=== PATIENT | female | born 1950 | race Hispanic/Latino ===

== ENCOUNTER 2018-10-06 23:56 | Emergency (ER) | payer BC, MEDICARE ==
[2018-10-07 01:22] LABS: APPEARANCE,URINE Clear (CLEAR); BILIRUBIN,URINE Negative (NEGATIVE); COLOR,URINE Yellow (YELLOW); GLUCOSE, URINE (UA) Negative (NEGATIVE); KETONES,URINE Negative (NEGATIVE); LEUKOCYTE ESTERASE ,URINE Moderate (NEGATIVE); NITRATE,URINE Positive (NEGATIVE); OCCULT BLOOD,URINE Negative (NEGATIVE); PH,URINE 6.5 (5.0-8.0); PROTEIN,URINE Negative (NEGATIVE); UROBILINOGEN,URINE 0.2 mg/dL (0.2-1.0)
[2018-10-07 01:34] LABS: BACTERIA,URINE Many /HPF (None Seen); RBC,URINE None Seen /HPF (0-1)
[2018-10-07 01:35] LABS: MUCUS,URINE None Seen LPF (None Seen); SQUAMOUS EPITHELIAL CELL,UR None Seen /HPF (0-2)
[2018-10-07 01:40] LABS: BASOPHILS % (AUTO) 0.4 % (0.0-5.0); EOSINOPHILS % (AUTO) 0.6 % (0.0-8.0); HEMATOCRIT 44.7 % (36-48); LYMPHOCYTES % (AUTO) 25.4 % (21.0-51.0); MEAN CORPUSCULAR HEMOGLOBIN 27.5 pg (27.0-33.0); MEAN CORPUSCULAR HGB CONC 34.2 g/dL (32.0-36.0); MEAN CORPUSCULAR VOLUME 80.4 fL (79-99); MONOCYTES % (AUTO) 10.1 % (3.0-13.0); NEUTROPHILS % (AUTO) 63.5 % (40.0-77.0); NUCLEATED RED BLOOD CELLS 0.1 % (0.0-0.19); PLATELET COUNT (AUTO) 201 K/uL (130-400); RED BLOOD CELL COUNT(AUTO) 5.57 MIL/uL (4.00-5.50); RED CELL DISTRIBUTION WIDTH 14.6 % (11.0-15.5); WHITE BLOOD COUNT (AUTO) 6.1 K/uL (4.8-10.8)
[2018-10-07 01:49] LABS: CREATININE 1.1 mg/dL (0.5-1.5); POTASSIUM 3.7 mmol/L (3.5-5.1)
[2018-10-07 01:53] LABS: ALBUMIN 3.7 g/dL (3.5-5.0); BILIRUBIN,TOTAL 1.5 mg/dL (0.2-1.0); TOTAL PROTEIN, SERUM 7.5 g/dL (6.0-8.3)
[2018-10-07] MEDS ORDERED: LEVOFLOXACIN 500 MG TABLET ONE (02:23)
== END 2018-10-07 02:37 | disposition home or self-care (01) ==
LOC: EDH 23:56
DX: R03.0 Elevated blood-pressure reading, without diagnosis of hypertension (principal); R82.71 Bacteriuria
CPT/HCPCS: 36415; 80053; 81001; 84484; 85025; 93005

== ENCOUNTER 2022-11-09 00:06 | Emergency (ER) | payer BC, MEDICARE ==
[~2022-11-09] VITALS: Ht 175.3 cm; Wt 85.3 kg
[2022-11-09 01:16] LABS: APPEARANCE,URINE CLEAR (CLEAR); BILIRUBIN,URINE NEGATIVE (NEGATIVE); COLOR,URINE LIGHT-YELLOW (YELLOW); GLUCOSE, URINE (UA) NEGATIVE (NEGATIVE); KETONES,URINE NEGATIVE (NEGATIVE); LEUKOCYTE ESTERASE ,URINE NEGATIVE Leu/uL (NEGATIVE); NITRATE,URINE NEGATIVE (NEGATIVE); OCCULT BLOOD,URINE LARGE (NEGATIVE); PROTEIN,URINE NEGATIVE (NEGATIVE); UROBILINOGEN,URINE 0.2 mg/dL (0.2-1.0)
[2022-11-09 01:33] LABS: MUCUS,URINE RARE LPF (None Seen); RBC,URINE TNTC /HPF (0-1); WBC,URINE 0-1 /HPF (0-1)
[2022-11-09] MEDS ORDERED: POTASSIUM BICARB/CIT AC 25 MEQ TABLET.EFF PO ONE (03:00)
[2022-11-09 03:16] VITALS: BP 138/70
== END 2022-11-09 03:20 | disposition home or self-care (01) ==
LOC: EDH 00:06
DX: N32.0 Bladder-neck obstruction (principal); R33.8 Other retention of urine; I10 Essential (primary) hypertension; Z90.49 Acquired absence of other specified parts of digestive tract
CPT/HCPCS: 51702; 81001

== ENCOUNTER 2024-08-25 14:42 | Emergency (ER) | payer MEDICARE, OTHER ==
[~2024-08-25] VITALS: Ht 175.3 cm; Wt 84.4 kg
--- NOTE | 2024-08-25 15:27 | EKG ---
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
[2024-08-25] MEDS: 0.9%NACL 1000ML 1,000 ML IV ONE (15:30)
--- NOTE | 2024-08-25 15:35 | ERN ---
General Chief Complaint: Nausea,Vomiting,Diarrhea Stated Complaint: DIZZY, VOMITING Time Seen by MD: 14:42 Source: patient, family History of Present Illness Initial Comments Patient is a 73-year-old male coming in to be evaluated for nauseousness vomi ting and dizziness. Per patient this began earlier in the morning the coming 7:00 a.m. he woke up Tuesday digits bed and felt nauseous and felt that is pending. He states he ate some soup last night lose it might be associated with the confirms it. Along with the nauseousness and dizziness he had couple of emesis. Allergies: Coded Allergies: No Known Drug Allergies (Unverified Allergy, Unknown, 02/25/19) Past Medical History Past Medical History: Hypertension, Prostatitis Past Surgical History: Cholecystectomy Social History Social History: Negative, Lives with family ROS Dictation CONSTITUTIONAL: No chills, no fever, no weakness, no diaphoresis, no malaise. HEAD/FACE: No signs of trauma. EENT: No eye pain, no blurred vision, no tearing, no double vision, no ear pain, no ear discharge, no nose pain, no nasal congestion, no throat pain, no throat swelling, no mouth pain. RESPIRATORY: No cough, no orthopnea, no SOB, no stridor, no wheezing. CARDIOVASCULAR: No chest pain, no edema, no palpitations, no syncope. GASTROINTESTINAL/ABDOMINAL: No abdominal pain, no constipation, no diarrhea, no nausea, no vomiting. GENITOURINARY: No abnormal discharge, no dysuria, no frequent urination, no hematuria. No complaints of pain in the genitals. MUSCULOSKELETAL: No back pain, no gout, no joint pain, no joint swelling, no muscle pain, no muscle stiffness, no neck pain. INTEGUMENTARY: No change in color, no change in hair/nails, no dryness, no lesion, no lumps, no rash. NEUROLOGICAL/PSYCH: No anxiety, not depressed, no emotional problem, no headache, no numbness, no pre-existing deficit, no history of seizures, no tr emors, no weakness. HEMATOLOGIC/LYMPHATIC: Not anemic, no history of blood clots, no apparent bleeding, no bruising, glands not swollen. All Systems Negative, Except as Noted. Physical Exam Physical Exam Dictation VITAL SIGNS: Reviewed. GENERAL APPEARANCE: Alert, oriented x3, no acute distress, obese. HEAD AND FACE: Non-traumatic. EYES: PERRL, pink conjunctivas, eyelid no trauma, anterior chamber clear. EARS: Pinnas intact and no signs of trauma or erythema. Ear canals clear and no discharge. TMs no erythema. NOSE: No discharge, no bleeding. OROPHARYNX: Mouth normal, teeth no caries, tongue pink. Pharynx clear, no erythema. Tonsils no exudates, no abscesses noted. Mucous membrane moist. NECK: Supple, non-tender, no thyromegaly, no masses, no JVD, no bruits. BREAST: Deferred. CHEST: No tenderness, no crepitus, no paradoxical movement, no retractions. LUNGS: Clear, well-ventilated, symmetric, no rales, no wheezing, no rhonchi, no stridor, good breath sounds bilaterally. HEART: Regular rate, regular rhythm, no murmur, no gallops. VASCULAR: No peripheral edema. ABDOMEN: Soft, positive bowel sounds, nondistended, no guarding, nontender, no rebound, no masses no hepatomegaly, no splenomegaly, no Gifford's sign, no hernias. RECTAL: Deferred. GENITAL: Deferred. NEUROLOGICAL: Normal speech, gross motor function intact, gross sensory function intact. MUSCULOSKELETAL: Neck nontender, full range of motion, back nontender, full range of motion. EXTREMITIES: Nontender, full range of motion. SKIN: Color pink, dry, no turgor, no rash, no lacerations, no abrasions, no contusions. LYMPHATICS: Deferred. Results Laboratory and Microbiology Lab and Micro Result Laboratory Tests Test 08/25/24 15:39 White Blood Count 8.4 K/uL (4.8-10.8) Red Blood Count 5.72 MIL/uL (4.50-6.20) Hemoglobin 15.4 g/dL (14.0-18.0) Hematocrit 45.9 % (42-54) Mean Corpuscular Volume 80.2 fL (79-99) Mean Corpuscular Hemoglobin 26.9 pg (27.0-33.0) L Mean Corpuscular Hemoglobin Concent 33.6 g/dL (32.0-36.0) Red Cell Distribution Width 12.7 % (11.0-15.5) Platelet Count 213 K/uL (130-400) Mean Platelet Volume 9.8 fL (7.5-10.5) Immature Granulocyte % (Auto) 0.4 % (0-1) Neutrophils (%) (Auto) 82.3 % (40.0-77.0) H Lymphocytes (%) (Auto) 13.6 % (21.0-51.0) L Monocytes (%) (Auto) 3.6 % (3.0-13.0) Eosinophils (%) (Auto) 0.0 % (0.0-8.0) Basophils (%) (Auto) 0.1 % (0.0-5.0) Neutrophils # (Auto) 7.0 K/uL (1.8-7.7) Lymphocytes # (Auto) 1.2 K/uL (1.0-4.8) Monocytes # (Auto) 0.3 K/uL (0.1-1.0) Eosinophils # (Auto) 0.00 K/uL (0.00-0.70) Basophils # (Auto) 0.01 K/uL (0.00-0.20) Absolute Immature Granulocyte (auto 0.03 K/uL (0-1) Nucleated Red Blood Cells 0.0 % (0.0-0.19) Prothrombin Time 10.9 SEC (9.6-11.6) Prothromb Time International Ratio 1.03 (0.85-1.15) Activated Partial Thromboplast Time 26.9 SEC (26.3-35.5) Sodium Level 138 mmol/L (136-145) Potassium Level 4.1 mmol/L (3.5-5.1) Chloride Level 104 mmol/L (101-111) Carbon Dioxide Level 27 mmol/L (21-32) Blood Urea Nitrogen 18 mg/dL (7-18) Creatinine 1.2 mg/dL (0.5-1.3) Glomerular Filtration Rate Calc 64 mL/min (>90) Random Glucose 142 mg/dL (70-105) H Total Calcium 9.3 mg/dL (8.5-10.1) Magnesium Level 2.00 mg/dL (1.80-2.40) Total Creatine Kinase 65 U/L (21-232) # Troponin I High Sensitivity 6 ng/L (4-75) B-Type Natriuretic Peptide 35 pg/mL (0-100) Labs Reviewed?: Yes EKG/XRAY/US/CT/MRI EKG Comment 08/25/2024 time 3:22 p.m. Ventricular rate 78 Sinus rhythm [place] [address] wave elevation or depression X-RAY Comment [address] [address] IMAGING REPORT Signed PATIENT: MAILE OREILLY MR#: [id number] : 1950 SEX: M AGE: 73 LOCATION: ED ORDER [id number] STATUS: REG ER REPORT#: [id number] SERVICE 151 REASON: vertigo ORDERING PHYSICIAN: TRACEY CANALES MD PROCEDURE: CXR1VW - CHEST 1VW CHEST 1VW CLINICAL HISTORY: vertigo COMPARISON: 02/24/2019 TECHNIQUE: Single view of the chest was obtained. FINDINGS: Lungs are clear. The cardiac size and mediastinum are unremarkable. The bony structures are within normal limits. IMPRESSION: No acute cardiopulmonary process identified. DICTATED BY: KIRSTIE ANTUNEZ DO DATE: 08/25/24 1545 ELECTRONICALLY SIGNED BY: KIRSTIE ANTUNEZ DO DATE: 08/25/[address] Scan Comment [address] [address] IMAGING REPORT Signed PATIENT: MAILE OREILLY MR#: [id number] : 1950 SEX: M AGE: 73 LOCATION: ED ORDER [id number] STATUS: REG ER REPORT#: [id number] SERVICE 1535 REASON: headache ORDERING PHYSICIAN: TRACEY CANALES MD PROCEDURE: HEAD WO - CT HEAD/BRAIN W/O CONTRAST CT HEAD/BRAIN W/O CONTRAST CLINICAL HISTORY: headache COMPARISON: None TECHNIQUE: Multiple sequential axial images of the head were obtained from the base of the skull through vertex. CT was performed with one or more of the following dose reduction techniques: automated exposure control, adjustment of the mA and/or kV according to patient size, or use of iterative reconstruction technique FINDINGS: There is mild atrophy and small vessel disease. The orbital contents, paranasal sinuses and mastoid air cells are within normal limits. The calvarium is intact. IMPRESSION: There are no acute findings DICTATED BY: KIRSTIE ANTUNEZ DO DATE: 08/25/241614 ELECTRONICALLY SIGNED BY: KIRSTIE ANTUNEZ DO DATE: 08/25/241617 [facility] MDM: Differential diagnosis: VERTIGO , SINUSITIS, DEHYDRATION, STROKE, PATIENT IS A 73-YEAR-OLD MALE COMING IN TO BE EVALUATED FOR VERTIGO AND NAUSEOUSNESS. LABORATORY WORKUP AND CT OF THE HEAD NEGATIVE FOR ACUTE FINDINGS. PATIENT WAS HYDRATED WITH IV FLUIDS STATES HE WAS SYMPTOMS HAVE COMPLETELY SUBSIDED. PATIENT WILL BE DISCHARGED IN STABLE CONDITION WITH A DIAGNOSIS OF SINUSITIS AND DEHYDRATION. ED Course Orders Procedure Category Date Status Time Cbc With Differential LAB 08/25/24 Complete 15:16 Prothrombin Time With LAB 08/25/24 Complete INR 15:16 B-Type Natriuretic LAB 08/25/24 Complete Peptide 15:16 Chest 1vw RAD 08/25/24 Resulted 15:16 12 Lead Ekg Tracing- EKG 08/25/24 Complete Technical 15:16 0.9%Nacl 1000ml (Ns PHA 08/25/24 Complete 1000ml) 15:30 Magnesium LAB 08/25/24 Complete 15:16 Creatine Kinase, Total LAB 08/25/24 Complete 15:16 Troponin I High LAB 08/25/24 Complete Sensitivity 15:16 Urinalysis Profile LAB 08/25/24 Logged 15:16 Partial LAB 08/25/24 Complete Thromboplastin Time 15:16 Basic Metabolic Panel LAB 08/25/24 Complete 15:16 Ct Head/Brain W/O CT 08/25/24 Resulted Contrast 15:35 Current Medications Medications (Trade) Dose Ordered Sig/Mendoza Route PRN Reason Start Time Stop Time Status Last Admin Dose Admin Sodium Chloride 1,000 ml @ 0 mls/hr ONCE ONCE IV 08/25/24 15:30 08/25/24 15:31 DC 08/25/24 15:30 Vital Signs Date Time Temp Pulse Resp B/P (MAP) Pulse Ox O2 Delivery O2 Flow Rate FiO2 08/25/24 17:58 98.8 82 20 153/78 100 Room Air* 0 21 08/25/24 14:52 97.7 82 16 145/85 97 DX & DISP Disposition: Discharge Departure Impression: Primary Impression: Dehydration Additional Impression: Sinusitis Condition: Stable Scripts Loratadine (Loratadine) 10 Mg Tablet 1 TAB PO DAILY for allergy symptoms for 30 Days, #30 TAB 0 Refills Prov: TRACEY CANALES MD 08/25/24 Fluticasone Propionate (Flonase Nasal [place]) 50 Mcg/Actuation [place] 2 SPRAY NS DAILY, #16 GM 0 Refills Prov: TRACEY CANALES MD 08/25/24 Amoxicillin/Potassium Clav (Amox Tr-K Clv 875-125 mg Tab) 875 Mg-125 Mg Tablet 1 TAB PO BID for 10 Days, #20 TAB 0 Refills Prov: TRACEY CANALES MD 08/25/24 Additional Instructions: FOLLOW-UP WITH PRIMARY CARE PROVIDER IN 1 TO 2 DAYS. TAKE MEDICATIONS DIRECTED HERE IN THE EMERGENCY ROOM. OKAY TO CONTINUE HOME MEDICATIONS UNLESS OTHERWISE DISCUSSED DURING YOUR VISIT IN THE EMERGENCY ROOM TODAY. RETURN TO YOUR NEAREST EMERGENCY ROOM IF SYMPTOMS WORSEN OR IF THERE IS NO IMPROVEMENT. CALL 911 IF YOU NEED IMMEDIATE ASSISTANCE. TAKE TYLENOL [id number] NEEDED AND IF NO CONTRAINDICATIONS ARE PRESENT. INCREASE ORAL HYDRATION. A WOUND CULTURE OR URINE CULTURE WAS ORDERED HERE IN THE EMERGENCY ROOM DEPARTMENT PLEASE FOLLOW-UP WITH PRIMARY CARE PROVIDER AND ADVISE THEM TO GET REPEAT PORTS FROM OUR FACILITY. IF YOU HAD ANY SOLA WRAP/SPLINTS THAT WERE APPLIED HERE, PLEASE DO NOT REMOVE THEM UNTIL YOU SEE YOUR PRIMARY CARE OR SPECIALTY. REFERRALS: Referrals: PEG DOWNS MD (PCP) Time of Disposition: 18:31 TRACEY CANALES MD Aug 25, 2024 15:35
--- NOTE | 2024-08-25 15:48 | HMCIMG ---
CHEST 1VW CLINICAL HISTORY: vertigo COMPARISON: 02/24/2019 TECHNIQUE: Single view of the chest was obtained. FINDINGS: Lungs are clear. The cardiac size and mediastinum are unremarkable. The bony structures are within normal limits. IMPRESSION: No acute cardiopulmonary process identified.
[2024-08-25 15:51] LABS: BASOPHILS # (AUTO) 0.01 K/uL (0.00-0.20); BASOPHILS % (AUTO) 0.1 % (0.0-5.0); HEMATOCRIT 45.9 % (42-54); IMMATURE GRANULOCYTE ABSOLUTE 0.03 K/uL (0-1); LYMPHOCYTES # (AUTO) 1.2 K/uL (1.0-4.8); LYMPHOCYTES % (AUTO) 13.6 % (21.0-51.0); MEAN CORPUSCULAR HEMOGLOBIN 26.9 pg (27.0-33.0); MEAN CORPUSCULAR HGB CONC 33.6 g/dL (32.0-36.0); MEAN CORPUSCULAR VOLUME 80.2 fL (79-99); MONOCYTES # (AUTO) 0.3 K/uL (0.1-1.0); MONOCYTES % (AUTO) 3.6 % (3.0-13.0); NEUTROPHILS % (AUTO) 82.3 % (40.0-77.0); PLATELET COUNT (AUTO) 213 K/uL (130-400); RED BLOOD CELL COUNT(AUTO) 5.72 MIL/uL (4.50-6.20); RED CELL DISTRIBUTION WIDTH 12.7 % (11.0-15.5); WHITE BLOOD COUNT (AUTO) 8.4 K/uL (4.8-10.8)
[2024-08-25 16:00] LABS: CREATININE 1.2 mg/dL (0.5-1.3); INR 1.03 (0.85-1.15); POTASSIUM 4.1 mmol/L (3.5-5.1); PROTHROMBIN TIME 10.9 SEC (9.6-11.6)
[2024-08-25 16:02] LABS: PARTIAL THROMBOPLASTIN TIME 26.9 SEC (26.3-35.5)
[2024-08-25 16:15] LABS: B-TYPE NATRIURETIC PEPTIDE 35 pg/mL (0-100)
--- NOTE | 2024-08-25 16:18 | HMCIMG ---
CT HEAD/BRAIN W/O CONTRAST CLINICAL HISTORY: headache COMPARISON: None TECHNIQUE: Multiple sequential axial images of the head were obtained from the base of the skull through vertex. CT was performed with one or more of the following dose reduction techniques: automated exposure control, adjustment of the mA and/or kV according to patient size, or use of iterative reconstruction technique FINDINGS: There is mild atrophy and small vessel disease. The orbital contents, paranasal sinuses and mastoid air cells are within normal limits. The calvarium is intact. IMPRESSION: There are no acute findings
[2024-08-25] MEDS ORDERED: AMOX1TAB16 PO (18:32)
[2024-08-25] MEDS ORDERED: FLUT16H NS (18:32)
[2024-08-25] MEDS ORDERED: LORA10TA7 PO (18:32)
[2024-08-25 19:07] VITALS: BP 147/74; PULSE 84; RESP 18; TEMP 98.1; O2SAT 100
== END 2024-08-25 19:08 | disposition home or self-care (01) ==
LOC: EDH 14:42 → EEVIPCON 14:42 → EDH 19:08
DX: E86.0 Dehydration (principal); J32.9 Chronic sinusitis, unspecified; I10 Essential (primary) hypertension; R07.9 Chest pain, unspecified; Z90.49 Acquired absence of other specified parts of digestive tract
CPT/HCPCS: 99285; 82550; 83735; 84484; 80048; 83880; 85025; 85610; 85730; 36415; 71045; 70450; 96360; 96361; 93005; J7030

== ENCOUNTER 2025-06-16 04:29 | Emergency (ER) | payer OTHER ==
[~2025-06-16] VITALS: Ht 175.3 cm; Wt 83.9 kg
[~2025-06-16 04:29] MED LIST: AMOX1TAB16 PO; FLUT16H NS; LORA10TA7 PO
--- NOTE | 2025-06-16 04:33 | NUR ---
REPORT TO FOSTER ISLAS
[2025-06-16 05:44] VITALS: BP 119/77; PULSE 67; RESP 18; TEMP 98.1; O2SAT 98
[2025-06-16] MEDS ORDERED: PRED20TA3 PO (06:18)
--- NOTE | 2025-06-16 06:18 | ERN ---
ED Note History of Present Illness Stated Complaint: RASH/HIVES Chief Complaint: Allergic Reaction Time Seen by MD: 04:35 Dictation: This is a very pleasant 74-year-old male who presented to the emergency room with complaints of rash and hives with that started yesterday all over his torso upper extremities and lower extremities. He stated that it has been itching. The day he felt some hives but did not think much of it but by evening it has spread all over. He did not take any medications for relief [id number]. He denied any shortness of breath stridorous breathing or wheezing. No swelling of the tongue lips. He and his spouse were out all day and stated that towards the end of the day he had some frozen Sha chicken nuggets which he has eaten before. He could not recall any new changes in his lifestyle either in terms of detergents, clothes cologne or food Temperature 90 6.3 pulse 74 respirations 18 blood pressure 162/88 with a pulse oximetry of 99% on room air Allergies: Coded Allergies: No Known Drug Allergies (Unverified Allergy, Unknown, 02/25/19) Home Meds Active Scripts Prednisone (Prednisone) 20 Mg Tablet, 1 TAB PO AD for 6 Days, #14 TAB 0 Refills TAKE 1 TAB BY MOUTH THREE TIMES PER DAY X3 DAYS, THEN TAKE 1 TAB BY MOUTH TWICE A DAY X2 DAYS, THEN TAKE 1 TAB BY MOUTH ONCE A DAY X1 DAY. Prov:KYARA MOLINA MD 06/16/25 Loratadine (Loratadine) 10 Mg Tablet, 1 TAB PO DAILY for allergy symptoms for 30 Days, #30 TAB 0 Refills Prov:TRACEY CANALES MD 08/25/24 Fluticasone Propionate (Flonase Nasal [place]) 50 Mcg/Actuation [place], 2 SPRAY NS DAILY, #16 GM 0 Refills Prov:TRACEY CANALES MD 08/25/24 Amoxicillin/Potassium Clav (Amox Tr-K Clv 875-125 mg Tab) 875 Mg-125 Mg Tablet, 1 TAB PO BID for 10 Days, #20 TAB 0 Refills Prov:TRACEY CANALES MD 08/25/24 Past Medical History Past Medical History: Hypertension, Prostatitis, Other Additional Past Medical Hx: BPH Surgical History: Cholecystectomy Social History: Negative, Lives with family RN Note Reviewed/Agreed w/PFSH: Yes Review of System Dictation Constitutional: Negative for fever,chills, and weight loss Eyes: Negative for injury, pain,redness, and discharge ENT: Negative for injury,pain or swelling Cardiovascular: Negative for chest pain, palpitations, and edema Respiratory: Negative for shortness of breath, cough, and wheezing, Abdomen/GI: Negative for abdominal pain, nausea, vomiting, diarrhea, and constipation Back: Negative for injury and pain : Negative for injury, bleeding and discharge MS/Extremity: Negative for injury and deformity Skin: Positive for rash, diffuse urticaria all over the trunk upper extremities and lower extremities sparing the face Neuro: Negative for headache, weakness, numbness, tingling, and seizure Psych: Negative for suicide ideation, homicidal ideation, and hallucinations Initial Vital Sign VS Vital Signs Date Time Temp Pulse Resp B/P (MAP) Pulse Ox O2 Delivery O2 Flow Rate FiO2 06/16/25 04:30 96.3 74 18 162/88 99 Room Air 06/16/25 05:44 0 21 Physical Exam Dictation General: awake, alert, NAD no stridor Head/Face: Normocephalic, atraumatic Eyes: PERRL, EOMI, vision at baseline ENT: oral cavity clear, TMs clear, no signs of infection no angioedema Neck: Trachea midline, supple, no nuchal rigidity Cardiovascular: RRR, normal S1/S2, No MRGs, no JVD Respiratory: CTAB, no respiratory distress, No rales or wheezes Abdomen: Soft, non-tender, non-distended, normal bowel sounds, no guarding or rebound. Skin: Warm, dry, normal turgor, diffuse urticaria on the trunk upper extremities and lower extremities no purulent drainage or fluctuance. No evidence of any cellulitis. MS/Extremity: Pulses equal, no cyanosis, neurovascular intact, FROM Neuro: COAx4, GCS 15, strength 5/5, CN 2-12 intact, normal cerebellar exam, normal gait, Psych: Normal behavior, mood, and affect normal Extremities-trace edema without any palpable cords, Homans sign is negative ED Course ED Course Orders Procedure Category Date Status Time Methylprednisolone PHA 06/16/25 Complete Succ 125mg (Solu-Medr 05:00 Diphenhydramine Hcl PHA 06/16/25 Complete (Benadryl Inj) 05:00 Current Medications Medications (Trade) Dose Ordered Sig/Mendoza Route PRN Reason Start Time Stop Time Status Last Admin Dose Admin Diphenhydramine HCl (BENAdryl INJ) 25 mg ONCE ONCE IV 06/16/25 05:00 06/16/25 05:01 DC 06/16/25 05:03 Methylprednisolone Sodium Succinate (Solu-medROL 125MG) 60 mg ONCE ONCE IVP 06/16/25 05:00 06/16/25 05:01 DC 06/16/25 05:03 Vital Signs Date Time Temp Pulse Resp B/P (MAP) Pulse Ox O2 Delivery O2 Flow Rate FiO2 06/16/25 05:44 98.1 67 18 119/77 98 Room Air* 0 21 06/16/25 04:30 96.3 74 18 162/88 99 Room Air Medical Decision Making MDM Differential diagnosis: Environmental allergies, insect bite, allergic reaction to a drug, infectious rash, angioedema, anaphylaxis This is a very pleasant 74-year-old male who presented to the emergency room with complaints of rash and hives with that started yesterday all over his torso upper extremities and lower extremities. He stated that it has been itching. The day he felt some hives but did not think much of it but by evening it has spread all over. He did not take any medications for relief [id number]. He denied any shortness of breath stridorous breathing or wheezing. No swelling of the tongue lips. He and his spouse were out all day and stated that towards the end of the day he had some frozen Sha chicken nuggets which he has eaten before. He could not recall any new changes in his lifestyle either in terms of detergents, clothes cologne or food Temperature 90 6.3 pulse 74 respirations 18 blood pressure 162/88 with a pulse oximetry of 99% on room air Trial of steroids and Benadryl and reassess him. No acute indication for subcu epinephrine at this time and patient is very comfortable 6:30 a.m. on reassessment patient's rash has almost resolved. Patient has no fever chills or rigors. Discharge to home on a short trial of steroid and PRN OTC Benadryl Previous outside records reviewed: Old ER visits. Risk of complication and/or morbidity or mortality of patient management: None Medications-Per medication reconciliation Need for hospitalization: Patient does not meet criteria for hospitalization. Need for emergency major/minor surgery: No There are no social concerns with this patient. Prescription drug management Prescriptions will include symptomatic care Patient's prior external medical records from other ER visits were reviewed by me as indicated. Prior testing and results from previous visits were reviewed. Prior tests were taken into account with medical decision making and resource utilization, independent historian/historians were used to obtain complete medical history. I independently interpreted the test that were performed, results were reviewed by me and considered findings on radiology if ordered. Medical management and examination interpretation discussions were had by me with other qualified healthcare professionals as indicated for the patient's care. Problem List Problem List: (1) Allergic reaction (2) Urticaria DX & DISP Disposition: Discharge Departure Impression: Primary Impression: Allergic reaction Additional Impression: Urticaria Condition: Stable Scripts Prednisone (Prednisone) 20 Mg Tablet 1 TAB PO AD for 6 Days, #14 TAB 0 Refills TAKE 1 TAB BY MOUTH THREE TIMES PER DAY X3 DAYS, THEN TAKE 1 TAB BY MOUTH TWICE A DAY X2 DAYS, THEN TAKE 1 TAB BY MOUTH ONCE A DAY X1 DAY. Prov: KYARA MOLINA MD 06/16/25 Additional Instructions: Patient and the caregiver have been informed of all the diagnostic tests and the imaging conducted during the today's visit to the emergency room and has verbalized understanding of the results I have personally reviewed and interpreted all diagnostic exams performed here in the ER today as well as the vital signs documented by the nursing staff. The patient is now being discharged to home and should follow up with the primary care physician or the specialist as directed by the ER staff. Recommend maintaining a log of foods or changes in the soaps detergents etcetera Referrals: PEG DOWNS MD (PCP) KYARA MOLINA MD Jun 16, 2025 06:18
== END 2025-06-16 06:55 | disposition home or self-care (01) ==
LOC: EDH 04:29
DX: L50.9 Urticaria, unspecified (principal); I10 Essential (primary) hypertension; N40.0 Benign prostatic hyperplasia without lower urinary tract symptoms; Z90.49 Acquired absence of other specified parts of digestive tract
CPT/HCPCS: 99284; 96374; 96375; J1200; J2919